=== PATIENT | female | born 1985 | race African-American/Black ===

== ENCOUNTER 2016-10-19 22:01 | Emergency (ER) | payer SELFPAY ==
[~2016-10-19] VITALS: Ht 160 cm; Wt 76.8 kg
[2016-10-20] MEDS ORDERED: ONDANSETRON 4MG ODT PO ONE (04:30)
[2016-10-20 04:35] VITALS: BP 110/62
== END 2016-10-20 05:10 | disposition home or self-care (01) ==
LOC: ER 22:01
DX: A08.4 Viral intestinal infection, unspecified (principal); J45.909 Unspecified asthma, uncomplicated; F17.210 Nicotine dependence, cigarettes, uncomplicated; Z91.041 Radiographic dye allergy status; Z98.890 Other specified postprocedural states
CPT/HCPCS: 81025; 99281; Q0162